=== PATIENT | female | born 1940 | race Caucasian/White ===

== ENCOUNTER 2017-03-21 09:14 | Inpatient (IN) | payer OTHER, BC ==
--- NOTE | 2017-03-21 09:52 | EDPHY ---
H & P Stated Complaint: abd pain Time Seen by Provider: 03/21/17 09:47 HPI/ROS: CHIEF COMPLAINT: Lower abdominal pain. HISTORY OF PRESENT ILLNESS: The patient is a 76-year-old female with a history of diverticulitis who presents with lower pain worse on the left than the right that began last night. She has been hospitalized for diverticulitis before and her symptoms today feel very similar. The pain is worse at night. She denies vomiting, fever, diarrhea, or other complaints. No chills, chest pain, shortness of breath, palpitations, urinary complaints, headache, lightheadedness. Her last colonoscopy was 2014 that showed diverticula. She has no history of abdominal surgery. REVIEW OF SYSTEMS: Aside from elements discussed in the HPI, a comprehensive 10-point review of systems was reviewed and is negative. PAST MEDICAL HISTORY: Breast cancer treated with lumpectomy and radiation, diverticulitis, c. Diff, rheumatic heart disease. SOCIAL HISTORY: Mother. VITAL SIGNS: Reviewed by me GENERAL: Well-developed, well-nourished, resting comfortably in no respiratory distress. HEENT: Atraumatic. Eyes: No icterus, no injection. Mouth: moist mucous membranes. No erythema or lesions. Neck: supple with no adenopathy. LUNGS: Clear to auscultation bilaterally, no wheezes, rhonchi or rales. CARDIAC: Regular rate and rhythm, no rubs, murmurs or gallops. ABDOMEN: Soft, nondistended, bowel sounds normal, LLQ tenderness. No guarding. BACK: No CVA tenderness. EXTREMITIES: No trauma. No edema. Range of motion is normal throughout. NEURO: Alert and oriented, grossly nonfocal. SKIN: Warm and dry, no rash. PSYCHIATRIC: Normal mentation, no agitation. Portions of this note were transcribed by a medical lead. I personally performed a history, physical exam, medical decision making, and confirmed accuracy of information the transcribed note. Source: Patient Exam Limitations: No limitations - Personal History Current Tetanus Diphtheria and Acellular Pertussis (TDAP): Yes - Medical/Surgical History Hx Asthma: No Hx Chronic Respiratory Disease: No Hx Diabetes: No Hx Cardiac Disease: No Hx Renal Disease: No Hx Cirrhosis: No Hx Alcoholism: No Hx HIV/AIDS: No Hx Splenectomy or Spleen Trauma: No Other PMH: BREAST CA, DIVERTICULITIS, CDIFF - Social History Smoking Status: Never smoked Constitutional: Initial Vital Signs Temperature (C) 36.7 C 03/21/17 09:25 Heart Rate 96 03/21/17 09:25 Respiratory Rate 16 03/21/17 09:25 Blood Pressure 170/79 H 03/21/17 09:25 O2 Sat (%) 96 03/21/17 09:25 O2 Delivery Mode Room Air Allergies/Adverse Reactions: No Known Allergies Allergy (Verified 05/12/16 12:13) Home Medications: Medication Instructions Recorded Cholecalciferol Vit D3 [Vitamin D3 4,000 units PO DAILY 03/21/17 2000 units tab (OTC)] Herbals/Supplements -Info Only 1 ea PO DAILY 03/21/17 Multivitamins [Multivitamin (*)] 1 each PO DAILY 03/21/17 Medical Decision Making - Diagnostics Imaging Results: Imaging Impressions Abdomen CT 03/21/17 10:15 Impression: 1. Severe acute diverticulitis of the proximal sigmoid colon extending for 9 cm with microperforations and pericolonic inflammatory fluid. No drainable abscesses or bowel obstruction. Recommend follow-up colonoscopy to rule out less likely possibility of colon carcinoma perforation. 2. Moderate hiatal hernia. 3. Atherosclerotic aorta without aneurysm. 4. Multiple hepatic cysts. 5. Atherosclerotic aorta without aneurysm. 6. Degenerative spondylolisthesis of the lumbar spine at L3-L4, resulting in severe central canal stenosis. Findings and recommendations discussed with emergency department physician, Carolyne Melchor MD at 1145 hours on March 21, 2017. Final report concurs with initial preliminary interpretation. Imaging: Discussed imaging studies w/ portfolio accountant Radiologist ED Course/Re-evaluation: 76-year-old female with a diverticulitis history presents with lower abdominal pain that is farther up the left side of her abdomen than her right. This feels very similar to her previous diverticulitis. She has no associated symptoms. Due to her history I feel an abdomen/pelvis CT is indicated. An IV was established and labs ordered. 1L IV saline administered. WBC elevated at 11.83. Study: CT of the abdomen/pelvis. Indication: LLQ pain, hx diverticulitis. Results: 1. Severe acute diverticulitis of the proximal sigmoid colon extending for 9 cm with microperforations and pericolonic inflammatory fluid. No drainable abscesses or bowel obstruction. Recommend follow-up colonoscopy to rule out less likely possibility of colon carcinoma perforation. 2. Moderate hiatal hernia. 3. Atherosclerotic aorta without aneurysm. 4. Multiple hepatic cysts. 5. Atherosclerotic aorta without aneurysm. 6. Degenerative spondylolisthesis of the lumbar spine at L3-L4, resulting in severe central canal stenosis. The study was read by the radiologist, Dr. Amador. I viewed the images myself on the PACS system. 1144: CT results conveyed to me by Dr. Amador, radiology, as diverticulitis with marked free fluid in the abdomen and microperforations. 1155: Reassessed patient. Discussed results of CT scan. I recommended admission to the patient. Initially patient was quite reluctant to be admitted to the hospital. progressive care manager did see the patient did helped arrange for patient's pets to be cared for and reassured the patient of the importance regarding further evaluation and admission to the hospital. 1243: Consulted with Caprice Eric, hospitalist. Admission accepted. Differential Diagnosis: After obtaining the patient's history and performing an examination, differential diagnosis considered included but was not limited to appendicitis, cholecystitis, gastritis, pancreatitis, kidney stones, urinary tract infections and other causes. - Data Points Laboratory Results: Laboratory Results 03/21/17 10:30 03/21/17 10:30 03/21/17 03/21/17 03/21/17 11:40 10:30 10:30 WBC 11.83 10^3/uL H 10^3/uL (3.80-9.50) RBC 4.52 10^6/uL 10^6/uL (4.18-5.33) Hgb 13.6 g/dL g/dL (12.6-16.3) Hct 39.5 % % (38.0-47.0) MCV 87.4 fL fL (81.5-99.8) MCH 30.1 pg pg (27.9-34.1) MCHC 34.4 g/dL g/dL (32.4-36.7) RDW 12.2 % % (11.5-15.2) Plt Count 220 10^3/uL 10^3/uL (150-400) MPV 10.0 fL fL (8.7-11.7) Neut % (Auto) 77.5 % H % (39.3-74.2) Lymph % (Auto) 9.1 % L % (15.0-45.0) Baker % (Auto) 11.8 % % (4.5-13.0) Eos % (Auto) 0.7 % % (0.6-7.6) Baso % (Auto) 0.5 % % (0.3-1.7) Nucleat RBC Rel Count 0.0 % % (0.0-0.2) Absolute Neuts (auto) 9.16 10^3/uL H 10^3/uL (1.70-6.50) Absolute Lymphs (auto) 1.08 10^3/uL 10^3/uL (1.00-3.00) Absolute Monos (auto) 1.40 10^3/uL H 10^3/uL (0.30-0.80) Absolute Eos (auto) 0.08 10^3/uL 10^3/uL (0.03-0.40) Absolute Basos (auto) 0.06 10^3/uL 10^3/uL (0.02-0.10) Absolute Nucleated RBC 0.00 10^3/uL 10^3/uL (0-0.01) Immature Gran % 0.4 % % (0.0-1.1) Immature Gran # 0.05 10^3/uL 10^3/uL (0.00-0.10) Sodium 139 mEq/L mEq/L (134-144) Potassium 4.0 mEq/L mEq/L (3.5-5.2) Chloride 104 mEq/L mEq/L (97-110) Carbon Dioxide 23 mEq/l mEq/l (22-31) Anion Gap 12 mEq/L mEq/L (8-16) BUN 13 mg/dL mg/dL (7-23) Creatinine 0.8 mg/dL mg/dL (0.6-1.0) Estimated GFR > 60 Glucose 90 mg/dL mg/dL (70-100) Calcium 9.3 mg/dL mg/dL (8.5-10.4) Total Bilirubin 1.1 mg/dL mg/dL (0.1-1.4) Conjugated Bilirubin 0.4 mg/dL mg/dL (0.0-0.5) Unconjugated Bilirubin 0.7 mg/dL mg/dL (0.0-1.1) AST 23 IU/L IU/L (14-46) ALT 30 IU/L IU/L (9-52) Alkaline Phosphatase 104 IU/L IU/L (38-126) Total Protein 6.8 g/dL g/dL (6.3-8.2) Albumin 4.1 g/dL g/dL (3.5-5.0) Urine Color COLORLESS Urine Appearance CLEAR Urine pH 6.0 (5.0-7.5) Ur Specific [place] 1.009 (1.002-1.030) Urine Protein NEGATIVE (NEGATIVE) Urine Ketones TRACE H (NEGATIVE) Urine Blood NEGATIVE (NEGATIVE) Urine Nitrate NEGATIVE (NEGATIVE) Urine Bilirubin NEGATIVE (NEGATIVE) Urine Urobilinogen NEGATIVE EU EU (0.2-1.0) Ur Leukocyte Esterase NEGATIVE (NEGATIVE) Urine RBC NONE SEEN /hpf /hpf (0-3) Urine WBC 1-3 /hpf /hpf (0-3) Ur Epithelial Cells TRACE /lpf /lpf (NONE-1+) Urine Bacteria TRACE /hpf H /hpf (NONE SEEN) Urine Glucose NEGATIVE (NEGATIVE) Medications Given: Discontinued Medications Hydromorphone HCl (Dilaudid) 0.5 mg IVP EDNOW ONE Stop: 03/21/17 12:38 Last Admin: 03/21/17 13:31 Dose: Not Given Sodium Chloride (Ns) 1,000 mls @ 0 mls/hr IV ONCE ONE PRN Reason: Wide Open Stop: 03/21/17 10:15 Last Admin: 03/21/17 10:55 Dose: 1,000 mls Sodium Chloride (Ns) 500 mls @ 0 mls/hr IV ONCE ONE PRN Reason: As Directed Stop: 03/21/17 10:16 Last Admin: 03/21/17 10:55 Dose: 500 mls Piperacillin/Tazobactam/Dextrose (Zosyn (Premix)) 100 mls @ 200 mls/hr IV EDNOW ONE PRN Reason: Protocol Stop: 03/21/17 13:09 Last Admin: 03/21/17 13:30 Dose: 100 mls Departure - Departure Disposition: [facility] Clinical Impression: Diverticulitis Qualifiers: Diverticulitis site: unspecified part of intestinal tract Diverticulitis bleeding: without bleeding Diverticulitis complication: with perforation Qualified Code(s): K57.80 - Diverticulitis of intestine, part unspecified, with perforation and abscess without bleeding Abdominal pain Qualifiers: Abdominal location: left lower quadrant Qualified Code(s): R10.32 - Left lower quadrant pain Condition: Fair Report Scribed for: Carolyne Melchor Report Scribed by: Steven Lord Date of Report: 03/21/17 Time of Report: 09:52
[2017-03-21] MEDS ORDERED: NS 1,000 ML IV ONE (10:14)
[2017-03-21] MEDS ORDERED: NS 500 ML IV ONE (10:15)
[2017-03-21] MEDS ORDERED: IOPAMIDOL (ISOVUE-300) 100 ML BTL IV ONE (10:33)
[2017-03-21 10:37] LABS: % IMMATURE GRANULYOCYTES 0.4 % (0.0-1.1); ABSOLUTE IMMATURE GRANULOCYTES 0.05 10^3/uL (0.00-0.10); ADD DIFF? NO; ADD MORPH? NO; ADD SCAN? NO; ATYPICAL LYMPHOCYTE FLAG 0 (0-99); FRAGMENT RBC FLAG 0 (0-99); HEMATOCRIT 39.5 % (38.0-47.0); HEMOGLOBIN 13.6 g/dL (12.6-16.3); LEFT SHIFT FLG 0 (0-99); LIPEMIA HEMOLYSIS FLAG 90 (0-99); MEAN CELL HEMOGLOBIN 30.1 pg (27.9-34.1); MEAN CELL HEMOGLOBIN CONCENTR. 34.4 g/dL (32.4-36.7); MEAN CELL VOLUME 87.4 fL (81.5-99.8); PLATELET CLUMPS FLAG 30 (0-99); PLATELET COUNT 220 10^3/uL (150-400); RED BLOOD CELL COUNT 4.52 10^6/uL (4.18-5.33); RED CELL DISTRIBUTION WIDTH 12.2 % (11.5-15.2)
[2017-03-21 10:55] LABS: ALANINE AMINOTRANSFERASE 30 IU/L (9-52); ALBUMIN 4.1 g/dL (3.5-5.0); ALKALINE PHOSPHATASE 104 IU/L (38-126); ANION GAP 12 mEq/L (8-16); ASPARTATE AMINOTRANSFERASE 23 IU/L (14-46); BILIRUBIN,TOTAL 1.1 mg/dL (0.1-1.4); BILIRUBIN-CONJUGATED 0.4 mg/dL (0.0-0.5); BILIRUBIN-UNCONJUGATED 0.7 mg/dL (0.0-1.1); CALCIUM 9.3 mg/dL (8.5-10.4); CARBON DIOXIDE 23 mEq/l (22-31); CHLORIDE 104 mEq/L (97-110); CREATININE 0.8 mg/dL (0.6-1.0); GLOMERULAR FILTRATION RATE > 60; GLUCOSE 90 mg/dL (70-100); SODIUM 139 mEq/L (134-144); TOTAL PROTEIN 6.8 g/dL (6.3-8.2)
[2017-03-21 12:06] LABS: COLOR COLORLESS; LEUKOCYTE ESTERASE,URINE NEGATIVE (NEGATIVE); NITRITE,URINE NEGATIVE (NEGATIVE)
[2017-03-21 12:15] LABS: BACTERIA TRACE /hpf (NONE SEEN)
[2017-03-21 12:16] LABS: RBC,URINE NONE SEEN /hpf (0-3)
[2017-03-21] MEDS ORDERED: HYDROmorphONE/DILAUDID 1 MG/ML SYR IVP ONE (12:37)
[2017-03-21] MEDS ORDERED: PIPERACILLIN/TAZO 4.5 GM/DEX 100 ML IV ONE (12:40)
[2017-03-21] MEDS ORDERED: ACETAMINOPHEN 325 MG TAB PO PRN (15:00)
[2017-03-21] MEDS ORDERED: oxyCODONE IR 5 MG TAB PO PRN (15:00)
[2017-03-21] MEDS ORDERED: HYDROCODONE/APAP 5/325 TAB PO PRN (15:00)
[2017-03-21] MEDS ORDERED: ONDANSETRON 4 MG/2 ML VIAL IVP PRN (15:00)
[2017-03-21] MEDS ORDERED: ONDANSETRON DISINTEGRATING 4 MG TAB PO PRN (15:00)
--- NOTE | 2017-03-21 15:25 | GHP ---
[f rep st] HISTORY AND PHYSICAL DATE OF ADMISSION: 03/21/2017 CHIEF COMPLAINT: Abdominal pain. HISTORY OF PRESENT ILLNESS: This is a 76-year-old female with a history of previous diverticulitis. Her last colonoscopy was in 2014. She had been feeling fatigued lately, but then developed left-s ided abdominal pain. She has had no fevers or chills. No nausea or vomiting. No diarrhea. It fee ls like a previous episode of diverticulitis. REVIEW OF SYSTEMS: A 10-point review of systems was obtained and other than as stated was negative. PAST MEDICAL HISTORY: 1. Diverticulitis. 2. Breast cancer. 3. Rheumatic heart disease. MEDICATIONS: None. SOCIAL HISTORY: No smoking or alcohol. FAMILY HISTORY: Both parents are . PHYSICAL EXAMINATION: VITAL SIGNS: Afebrile. Blood pressure is 153/100, heart rate 69, oxygen sat uration 96% on room air. GENERAL: The patient is well developed, in no apparent distress. HEENT: Nonicteric sclerae. Extraocular movements intact. Moist mucous membranes. NECK: Supple. No thy romegaly. LUNGS: Good effort. Clear to auscultation bilaterally. CARDIOVASCULAR: Regular rate a nd rhythm. No murmurs of gallops. ABDOMEN: Positive bowel sounds. Soft. Some mild left lower qu adrant tenderness. No rebound or guarding. EXTREMITIES: No clubbing, cyanosis, or edema. SKIN: Without rash. Dry, intact. NEUROLOGIC: Alert and oriented x3. Moving all 4 extremities equally. PSYCH: Normal mood and affect. LABORATORY DATA: White blood cell count 11. Chemistries normal. IMAGING: CT scan shows significant diverticulitis in the sigmoid with some pericolonic inflammatory fluid and microperforation. ASSESSMENT: Acute diverticulitis. PLAN: Will continue with the Zosyn that had been started in the emergency department. She saw Dr. Cortez for her last colonoscopy. Could consider followup after this to consider repeat colonoscopy . /[id number]/MODL
[2017-03-21] MEDS: NS 1,000 ML IV SCH (16:02)
[2017-03-21] MEDS: PIPERACILLIN/TAZO 3.375 GM/DEX 50 ML IV SCH ×2 (18:02→22:59)
[2017-03-22] MEDS: PIPERACILLIN/TAZO 3.375 GM/DEX 50 ML IV SCH ×2 (05:06→11:51)
[2017-03-22 05:19] LABS: % IMMATURE GRANULYOCYTES 0.3 % (0.0-1.1); ABSOLUTE IMMATURE GRANULOCYTES 0.02 10^3/uL (0.00-0.10); ADD DIFF? NO; ADD MORPH? NO; ADD SCAN? NO; ATYPICAL LYMPHOCYTE FLAG 0 (0-99); FRAGMENT RBC FLAG 0 (0-99); HEMATOCRIT 35.1 % (38.0-47.0); LEFT SHIFT FLG 0 (0-99); LIPEMIA HEMOLYSIS FLAG 90 (0-99); MEAN CELL HEMOGLOBIN 29.9 pg (27.9-34.1); MEAN CELL HEMOGLOBIN CONCENTR. 34.2 g/dL (32.4-36.7); MEAN CELL VOLUME 87.5 fL (81.5-99.8); MEAN PLATELET VOLUME 10.4 fL (8.7-11.7); PLATELET CLUMPS FLAG 0 (0-99); PLATELET COUNT 192 10^3/uL (150-400); RED BLOOD CELL COUNT 4.01 10^6/uL (4.18-5.33); RED CELL DISTRIBUTION WIDTH 12.2 % (11.5-15.2)
[2017-03-22 05:46] LABS: ANION GAP 6 mEq/L (8-16); CARBON DIOXIDE 24 mEq/l (22-31); CHLORIDE 108 mEq/L (97-110); CREATININE 0.8 mg/dL (0.6-1.0); GLOMERULAR FILTRATION RATE > 60; GLUCOSE 78 mg/dL (70-100); POTASSIUM 3.8 mEq/L (3.5-5.2); SODIUM 138 mEq/L (134-144)
[2017-03-22] MEDS: NS 1,000 ML IV SCH (08:47)
[2017-03-22] MEDS ORDERED: ENOXAPARIN 40 MG/0.4 ML SYR SC SCH (09:00)
[2017-03-22 11:07] VITALS: TEMP 97.2
--- NOTE | 2017-03-22 11:19 | HOSPPROG ---
Hospitalist Progress Note Assessment/Plan: Lexi is a 76 y/o female who was admitted with abdominal pain. She has a hx of diverticulitis (multiple episodes) but last one was 6 years ago. Today is my first encounter with the patient. Chart reviewed. *Acute diverticulitis abdominal pain has completely resolved treated w Ertapenem dc on levaquin and flagyl CT show severe acute diverticulitis of proximal sigmoid colon w microperforations should get a colonoscopy for f/u *hx of breast ca * Plan: dc home, eating and drinking well/no complaints of pain Subjective: Lexi is feeling well/ no complaints. Objective: Vital Signs Temp Pulse Resp BP Pulse Ox 36.2 C 77 14 185/62 H 94 03/22/17 11:05 03/22/17 11:05 03/22/17 11:05 03/22/17 11:05 03/22/17 11:05 Laboratory Results 03/22/17 04:46 03/22/17 04:46 03/21/17 03/22/17 03/23/17 05:59 05:59 05:59 Intake Total 1161 Balance 1161 - Physical Exam Constitutional: no apparent distress, appears nourished, not in pain Eyes: PERRL Ears, Nose, Mouth, Throat: hearing normal Cardiovascular: regular rate and rhythym Respiratory: no respiratory distress Gastrointestinal: normoactive bowel sounds, soft, non-tender abdomen Skin: warm, normal color Musculoskeletal: full muscle strength Neurologic: AAOx3 Psychiatric: interacting appropriately ICD10 Worksheet Patient Problems: Problems Problem Status Onset Abdominal pain Acute Diverticulitis Acute
--- NOTE | 2017-03-22 12:32 | GDS ---
[f rep st] DISCHARGE SUMMARY DISCHARGE DIAGNOSES: 1. Acute diverticulitis. 2. History of breast cancer. 3. Hypertension. New diagnosis. HOSPITAL COURSE: Briefly, the patient is a very nice 76-year-old female who has a history of previous diverticulitis. Her last episode was approximately 6 years ago. She had been feeling fatigued and developed left-sided abdominal pain. She had no fevers, no nausea or vomiting. She had a CT scan that showed significant diverticulitis in the sigmoid and some pericolonic inflammatory fluid and microperforation. Today, she is feeling markedly better. She has been eating regular food since last night. She is afebrile with a normal white blood cell count. She will be discharged home and have further follow up with Dr. Cortez. 1. Acute diverticulitis. Her abdominal pain has completely resolved. She will be treated with Levaquin and Flagyl. I recommend she get a colonoscopy for followup in 6 weeks after symptoms resolve. 2. History of breast cancer, in remission. 3. Hypertension. She has not had any treatment in the past. Will start her on Norvasc and have her follow up with her primary care provider. PENDING LABS AND TESTS: None. CONDITION AT DISCHARGE: Stable. Blood pressure is 167/79, heart rate is 90, respiratory rate is 14, O2 sats on room air 94%, temperature is 36.6 Celsius. MEDICATIONS AT DISCHARGE: Please see the EMR. DISCHARGE INSTRUCTIONS: 1. Take medications as prescribed. 2. Note that Levaquin can cause tendinopathy and affect the Achilles tendon. If she has pain, stop taking this medication. 3. Flagyl. Do not drink any alcohol and to take with food. 4. I recommend that she get further evaluation of her blood pressure. It has been moderately high throughout her whole stay. She has a blood pressure cuff at home to help monitor it. /[id number]/MODL MTDD
[2017-03-22 14:32] VITALS: BP 153/69; PULSE 80; RESP 16; O2SAT 96
== END 2017-03-22 15:10 | disposition home or self-care (01) | DRG 392 ==
LOC: F3E 14:55 → OBSVTOIN 15:00
PROVIDERS: ADMIT Internal Medicine; ATTEND Internal Medicine
DX: K57.20 Diverticulitis of large intestine with perforation and abscess without bleeding (principal); I10 Essential (primary) hypertension; Z85.3 Personal history of malignant neoplasm of breast
CPT/HCPCS: 96365; J1650; J2543; Q9967

== ENCOUNTER 2017-04-07 13:27 | Emergency (ER) | payer OTHER ==
[2017-04-07 13:39] VITALS: TEMP 97.5
--- NOTE | 2017-04-07 14:17 | EDPHY ---
H & P Stated Complaint: fall 1 year ago/since that time has had increasing memory deficits/balance Time Seen by Provider: 04/07/17 13:52 HPI/ROS: CHIEF COMPLAINT: Memory loss HISTORY OF PRESENT ILLNESS: This patient is a 76-year-old female who presents to the Emergency Department complaining of gradually worsening neurological deficits over the past two months. She reports intermittent memory deficits over that time; for example, she wrote a check yesterday for $10,000 more than the appropriate amount. She also describes altered gait over the past two weeks. She does describe an intermittent headache over the past year following a fall she sustained one year ago; she does not have a headache at time of presentation. She denies fever or chills over the past two weeks. No chest pain , cough, shortness of breath, abdominal pain, vomiting, diarrhea, or urinary complaints. She was seen in the ED two weeks prior for diverticulitis for which she has been taking antibiotics. Medical history also includes remote history of breast cancer. REVIEW OF SYSTEMS: A 10 point review of systems was performed and is negative with the exception of the elements mentioned in the history of present illness. Source: Patient, Family Exam Limitations: No limitations - Personal History Current Tetanus/Diphtheria Vaccine: Yes - Medical/Surgical History PMH: 1. Diverticulitis 2. Remote history of breast cancer 3. Hypertension Hx Asthma: No Hx Chronic Respiratory Disease: No Hx Diabetes: No Hx Cardiac Disease: No Hx Renal Disease: No Hx Cirrhosis: No Hx Alcoholism: No Hx HIV/AIDS: No Hx Splenectomy or Spleen Trauma: No Other PMH: BREAST CA, DIVERTICULITIS, CDIFF - Social History Smoking Status: Never smoked Additional Social History: -Retired, lives alone. -No alcohol use. Non-smoker. -Son and [id number] at bedside. - Other son works as an Emergency Medicine physician in [place]. - Physical Exam Exam: General Appearance: Alert, no acute distress. Blood pressure 162/88. Head: Normocephalic atraumatic. Eyes: Pupils equal and round, no conjunctival injection, no discharge. ENT, Mouth: Mucous membranes are dry, no oropharyngeal erythema or edema. Neck: No lymphadenopathy, supple. No thyromegaly. Respiratory: Lungs are clear to auscultation; no wheezes, rales, or rhonchi. Cardiovascular: Regular rate and rhythm; no murmur, rub, or gallop. Gastrointestinal: Abdomen is soft and non tender, no masses or organomegaly, bowel sounds normal. Skin: Warm and dry, no rashes, normal color. Back: Nontender to palpation over the thoracolumbar spine. Extremities: No lower extremity edema, no calf tenderness or swelling. Neurological: Alert and oriented. Moving all four extremities easily and equally. Cranial nerves II through XII are examined and are intact (visual acuity not tested). Strength is 5 over 5 bilaterally with testing of all major motor groups. Sensation is intact to light touch over all 4 extremities. Deep tendon reflexes are 2+ in the biceps and knees bilaterally. Gait is normal. Past -pointing bilaterally. No pronator drift. No truncal ataxia. Psychiatric: Normal affect. Constitutional: Initial Vital Signs Temperature (C) 36.4 C 04/07/17 13:37 Heart Rate 88 04/07/17 13:37 Respiratory Rate 17 04/07/17 13:37 Blood Pressure 162/88 H 04/07/17 13:37 O2 Sat (%) 96 04/07/17 13:37 O2 Delivery Mode Room Air Allergies/Adverse Reactions: No Known Allergies Allergy (Verified 04/07/17 13:35) Home Medications: Medication Instructions Recorded Cholecalciferol Vit D3 [Vitamin D3 4,000 units PO DAILY 03/21/17 2000 units tab (OTC)] Herbals/Supplements -Info Only 1 ea PO DAILY 03/21/17 Multivitamins [Multivitamin (*)] 1 each PO DAILY 03/21/17 amLODIPine BESYLATE [Norvasc 2.5 2.5 mg PO DAILY #30 tab 03/22/17 mg (*)] Ambien 04/07/17 Medical Decision Making - Diagnostics Imaging Results: CT scan of the brain with without contrast reviewed by me and discussed with radiologist. No acute findings. Imaging: Discussed imaging studies w/ call center rn Radiologist ED Course/Re-evaluation: This 76-year-old female presents with complaints of worsening neurological deficits and intermittent headaches, increasing over the past two months. Her neurological exam is significant for past-pointing bilaterally but is otherwise normal. Will proceed with labs, UA, and CT of the head. Labs obtained and are unremarkable. UA is negative for UTI. She mentions some gait difficulty but I do not appreciate this at the time of her evaluation. 1550: CT of the head is negative for acute process. No evidence of intracranial hemorrhage or mass. No ventriculomegaly. I discussed these results with the patient and family as well as my recommendation that she follow -up with a neurologist for further evaluation. They are agreeable to this. I have not found an acute problem, but I am concerned about progressive memory difficulties and I am recommending an evaluation for dementia. Patient is also concerned about this. I feel that she is safe at this time. She will be discharged home in good condition with customary return precautions. Differential Diagnosis: Altered mental status including but not limited to normal pressure hydrocephalus , undiagnosed dementia, hypoglycemia, infectious process, electrolyte abnormality, head injury and intoxicants. - Data Points Laboratory Results: Laboratory Results 04/07/17 15:00 04/07/17 15:00 Departure - Departure Disposition: Home, Routine, Self-Care Clinical Impression: Memory deficit Condition: Good Instructions: Altered Mental Status (ED) Additional Instructions: 1. Follow-up with a neurologist for further evaluation. We have referred you to our on-call provider, Dr. Wray. 2. Return to the Emergency Department for worsening memory difficulties, one- sided numbness or weakness, dizziness, severe headache, vision or speech changes , or for other serious concerns. Referrals: Laura Hernandez MD [Primary Care Provider] - As per Instructions Report Scribed for: Angeles Soria Report Scribed by: Heather Kirkland Date of Report: 04/07/17 Time of Report: 14:50 Physician Review and Approval Statement: 04/07/17 14:50 Portions of this note were transcribed by the medical authorization specialist. I, Dr. Angeles Soria, personally performed the history, physical exam, and medical decision- making; and confirmed the accuracy of the information in the transcribed note.
[2017-04-07 14:47] VITALS: BP 176/90; PULSE 97; RESP 16; O2SAT 95
[2017-04-07 15:06] LABS: % IMMATURE GRANULYOCYTES 0.2 % (0.0-1.1); ABSOLUTE IMMATURE GRANULOCYTES 0.01 10^3/uL (0.00-0.10); ADD DIFF? NO; ADD MORPH? NO; ADD SCAN? NO; ATYPICAL LYMPHOCYTE FLAG 10 (0-99); FRAGMENT RBC FLAG 0 (0-99); HEMATOCRIT 37.1 % (38.0-47.0); HEMOGLOBIN 12.7 g/dL (12.6-16.3); LEFT SHIFT FLG 0 (0-99); LIPEMIA HEMOLYSIS FLAG 90 (0-99); MEAN CELL HEMOGLOBIN 30.4 pg (27.9-34.1); MEAN CELL HEMOGLOBIN CONCENTR. 34.2 g/dL (32.4-36.7); MEAN CELL VOLUME 88.8 fL (81.5-99.8); MEAN PLATELET VOLUME 10.2 fL (8.7-11.7); PLATELET CLUMPS FLAG 0 (0-99); PLATELET COUNT 237 10^3/uL (150-400); RED BLOOD CELL COUNT 4.18 10^6/uL (4.18-5.33); RED CELL DISTRIBUTION WIDTH 12.2 % (11.5-15.2)
[2017-04-07] MEDS ORDERED: IOPAMIDOL (ISOVUE-300) 100 ML BTL ONE (15:23)
[2017-04-07 15:42] LABS: ANION GAP 9 mEq/L (8-16); CALCIUM 10.1 mg/dL (8.5-10.4); CARBON DIOXIDE 26 mEq/l (22-31); CHLORIDE 104 mEq/L (97-110); CREATININE 0.7 mg/dL (0.6-1.0); GLOMERULAR FILTRATION RATE > 60; GLUCOSE 98 mg/dL (70-100); POTASSIUM 3.8 mEq/L (3.5-5.2); SODIUM 139 mEq/L (134-144)
[2017-04-07 15:54] LABS: COLOR PALE YELLOW; LEUKOCYTE ESTERASE,URINE NEGATIVE (NEGATIVE); NITRITE,URINE NEGATIVE (NEGATIVE)
== END 2017-04-07 15:00 | disposition home or self-care (01) ==
DX: R41.3 Other amnesia (principal); I10 Essential (primary) hypertension; Z85.3 Personal history of malignant neoplasm of breast
CPT/HCPCS: 70470; 99285; Q9967; 82947-QW